=== PATIENT | female | born 1985 | race American Indian/Alaskan Native ===

== ENCOUNTER 2017-10-28 03:55 | Emergency (ER) | payer SELFPAY ==
--- NOTE | 2017-10-28 04:20 | ED PDOC ---
Arrival/HPI - General Chief Complaint: ENT Problem Time Seen by Provider: 10/28/17 04:13 Historian: Patient - History of Present Illness Narrative History of Present Illness (Text): 10/28/17 04:19 Tori Leone is a 32 year old female who presents to the Emergency department complaining of sore throat for the past 3 days. Patient states sore throat is worsened with swallowing. Patient reports associated subjective fever and chills. Patient denies any shortness of breath, wheezing, cough, chest pain , vomiting, neck pain, headache, dizziness, or any other complaints. Time/Duration: < week (3 days) Symptom Onset: Gradual Symptom Course: Unchanged Activities at Onset: Light Context: Home Past Medical History - Provider Review Nursing Documentation Reviewed: Yes - Psychiatric Hx Substance Use: No Family/Social History - Physician Review Nursing Documentation Reviewed: Yes Family/Social History: Unknown Family HX Smoking Status: Never Smoked Hx Alcohol Use: No Hx Substance Use: No Allergies/Home Meds Allergies/Adverse Reactions: Allergies No Known Allergies Allergy (Verified 10/28/17 04:12) Review of Systems - Physician Review All systems were reviewed & negative as marked: Yes - Review of Systems Constitutional: Normal. absent: Fevers Eyes: Normal ENT: Sore Throat Respiratory: Normal. absent: SOB, Cough Cardiovascular: Normal. absent: Chest Pain Gastrointestinal: Normal. absent: Abdominal Pain, Diarrhea, Nausea, Vomiting Genitourinary Female: Normal. absent: Dysuria, Frequency, Hematuria, Urine Output Changes Musculoskeletal: Normal. absent: Back Pain, Neck Pain Skin: Normal. absent: Rash Neurological: Normal. absent: Headache, Dizziness Endocrine: Normal Hemo/Lymphatic: Normal Psychiatric: Normal Physical Exam Vital Signs Reviewed: Yes Vital Signs Temp Pulse Resp BP Pulse Ox 10/28/17 06:54 98.9 F 80 17 132/82 98 10/28/17 04:13 99.0 F 82 18 123/81 99 Temperature: Afebrile Blood Pressure: Normal Pulse: Regular Respiratory Rate: Normal Appearance: Positive for: Well-Appearing, Non-Toxic, Comfortable Pain Distress: None Mental Status: Positive for: Alert and Oriented X 3 - Systems Exam Head: Present: Atraumatic, Normocephalic Pupils: Present: PERRL Extroacular Muscles: Present: EOMI Conjunctiva: Present: Normal Ears: Present: Normal, NORMAL TM, Normal Canal. No: Erythema, TM Bulging, Fluid , TM Perf Mouth: Present: Moist Mucous Membranes Pharnyx: Present: EXUDATE (Pus on right tonsil). No: TONSILS ENLARGED, Peritonsilar Swelling, Uvular Deviation, Muffled/Hoarse Voice, Strider, Soft Palate/Uvular Edema Nose (External): Present: Atraumatic Nose (Internal): Present: Normal Inspection Neck: Present: Normal Range of Motion. No: Meningeal Signs, MIDLINE TENDERNESS , Paraspinal Tenderness Respiratory/Chest: Present: Clear to Auscultation, Good Air Exchange. No: Respiratory Distress, Accessory Muscle Use Cardiovascular: Present: Regular Rate and Rhythm, Normal S1, S2. No: Murmurs Abdomen: Present: Normal Bowel Sounds. No: Tenderness, Distention, Peritoneal Signs Back: Present: Normal Inspection. No: CVA Tenderness, Midline Tenderness, Paraspinal Tenderness Upper Extremity: Present: Normal Inspection. No: Cyanosis, Edema Lower Extremity: Present: Normal Inspection. No: Edema Neurological: Present: GCS=15, CN II-XII Intact, Speech Normal Skin: Present: Warm, Dry, Normal Color. No: Rashes Psychiatric: Present: Alert, Oriented x 3, Normal Insight, Normal Concentration Medical Decision Making ED Course and Treatment: 10/28/17 04:19 Impression: 32 year old female complaining of sore throat x3 days, worse with swallowing. pt states medical last month however beta still elevated ,will tx with amoxil and tylenol Differential Diagnosis included but are not limited to: tonsillitis Plan: -- Labs -- IV fluids -- Decadron -- Reassess and disposition Progress Notes: 10/30/17 09:36 - Lab Interpretations Lab Results: 10/28/17 04:30 10/28/17 04:30 Lab Results 10/28/17 04:30: Beta HCG, Quant 176.48 H 10/28/17 04:30: Sodium 146, Potassium 3.0 L, Chloride 107, Carbon Dioxide 22, Anion Gap 20, BUN 6 L, Creatinine 0.7, Est GFR ( Amer) > 60, Est GFR (Non -Af Amer) > 60, Random Glucose 84, Calcium 9.4, Total Bilirubin 0.9, AST 22, ALT 22, Alkaline Phosphatase 89, Total Protein 7.9, Albumin 4.1, Globulin 3.8, Albumin/Globulin Ratio 1.1 10/28/17 04:30: WBC 12.5 H, RBC 3.81, Hgb 8.7 L, Hct 28.9 L, MCV 75.9 L, MCH 22.8 L, MCHC 30.1 L, RDW 18.3 H, Plt Count 313, MPV 9.9, Gran % 76.9 H, Lymph % (Auto) 12.0 L, Evangeline % (Auto) 10.2 H, Eos % (Auto) 0.7 L, Baso % (Auto) 0.2, Gran # 9.62 H, Lymph # (Auto) 1.5, Evangeline # (Auto) 1.3 H, Eos # (Auto) 0.1, Baso # (Auto) 0.02 - Medication Orders Current Medication Orders: Discontinued Medications Acetaminophen (Tylenol 160mg/5ml Oral Soln) 500 mg PO STAT STA Stop: 10/28/17 05:45 Last Admin: 10/28/17 05:58 Dose: 500 mg Amoxicillin (Amoxil 250 Mg/5 Ml Susp) 800 mg PO STAT STA PRN Reason: Protocol Stop: 10/28/17 05:41 Last Admin: 10/28/17 05:58 Dose: 800 mg Sodium Chloride (Sodium Chloride 0.9%) 1,000 mls @ 80 mls/hr IV .[id number] Last Admin: 10/28/17 04:39 Dose: 80 mls/hr eMAR Start Stop Document 10/28/17 04:39 IT (Rec: 10/28/17 04:39 IT [id number]) Intravenous Solution Start Date 10/28/17 Start Time 04:39 Potassium Chloride (Potassium Chloride Oral Soln) 40 meq PO STAT STA Stop: 10/28/17 05:41 Last Admin: 10/28/17 05:58 Dose: 40 meq - Scribe Statement The provider has reviewed the documentation as recorded by the Willie Castro Provider Scribe Attestation: All medical record entries made by the Scribe were at my direction and personally dictated by me. I have reviewed the chart and agree that the record accurately reflects my personal performance of the history, physical exam, medical decision making, and the department course for this patient. I have also personally directed, reviewed, and agree with the discharge instructions and disposition. Disposition/Present on Arrival - Present on Arrival Any Indicators Present on Arrival: No History of DVT/PE: No History of Uncontrolled Diabetes: No Urinary Catheter: No History of Decub. Ulcer: No History Surgical Site Infection Following: None - Disposition Have Diagnosis and Disposition been Completed?: Yes Diagnosis: Pharyngitis Disposition: HOME/ ROUTINE Disposition Time: 06:30 Condition: GOOD Discharge Instructions (ExitCare): Pharyngitis (ED) Prescriptions: Amoxicillin [Amoxicillin 250mg/5ml Susp] 800 mg PO BID #200 ml Forms: iiko (Kyrgyz), WORK NOTE
[2017-10-28] MEDS ORDERED: Sodium Chloride 0.9% 1,000 ML IV SCH (04:30)
[2017-10-28 04:59] LABS: ALB/GLOB RATIO 1.1 (1.1-1.8); ALBUMIN 4.1 g/dL (3.0-4.8); ALT/SGPT 22 U/L (7-56); AST/SGOT 22 U/L (14-36); BLOOD UREA NITROGEN 6 mg/dL (7-21); CALCIUM 9.4 mg/dL (8.4-10.5); GFR AFRICAN-AMERICAN > 60; GFR NON-AFRICAN AMERICAN > 60
[2017-10-28 05:17] LABS: BASO # 0.02 K/mm3 (0.0-2.0); BASO % 0.2 % (0.0-3.0); EOS # 0.1 (0.0-0.7); EOS % 0.7 % (1.5-5.0); GRAN # 9.62 (1.4-6.5); GRAN % 76.9 % (50.0-68.0); HEMOGLOBIN 8.7 g/dL (12.0-16.0); LYMPH # 1.5 (1.2-3.4); MEAN CELL VOLUME 75.9 fl (80.0-105.0); MEAN CORPUSCULAR HEMOGLOBIN 22.8 pg (25.0-35.0); MEAN CORPUSCULAR HGB CONC 30.1 g/dl (31.0-37.0); MEAN PLATELET VOLUME 9.9 fl (7.0-11.0); MONO # 1.3 (0.1-0.6); MONO % 10.2 % (1.0-6.0); RBC 3.81 10^6/uL (3.5-6.1); RED CELL DISTRIBUTION WIDTH 18.3 % (11.5-14.5); WHITE BLOOD COUNT 12.5 10^3/ul (4.5-11.0)
[2017-10-28] MEDS ORDERED: Amoxicillin 250 mg/5 ml Susp (150 ml) PO STA (05:40)
[2017-10-28] MEDS ORDERED: Potassium Chloride 40 mEq/30 ml LIQ UD PO STA (05:40)
[2017-10-28] MEDS ORDERED: Acetaminophen 160 mg/5 ml UD PO STA (05:44)
[2017-10-28 06:56] VITALS: BP 132/82; PULSE 80; RESP 17; TEMP 98.9; O2SAT 98
== END 2017-10-28 06:56 | disposition home or self-care (01) ==
LOC: ED 03:55
DX: J02.9 Acute pharyngitis, unspecified (principal)
CPT/HCPCS: 80053; 84702; 85025; 99283; J3480; J7040